=== PATIENT | female | born 1930 | race Caucasian/White ===

== ENCOUNTER 2017-01-22 17:37 | Inpatient (IN) | payer MEDICARE, BC ==
[~2017-01-22] VITALS: Ht 165.1 cm; Wt 77.1 kg
[2017-01-22] MEDS ORDERED: IV NORMAL SALINE 1000 ML BAG IV ONE ×2 (18:00→20:00)
[2017-01-22] MEDS ORDERED: ONDANSETRON 4 MG/2 ML VIAL IV ONE (18:00)
[2017-01-22] MEDS ORDERED: ONDANSETRON 4 MG/2 ML VIAL ONE (18:14)
[2017-01-22] MEDS ORDERED: LISI-607 PO (18:49)
[2017-01-22] MEDS ORDERED: CAL1TABL PO (18:49)
[2017-01-22] MEDS ORDERED: MULT-15 PO (18:49)
[2017-01-22] MEDS ORDERED: POTA20TA10 PO (18:49)
[2017-01-22] MEDS ORDERED: CHOL100045 PO (18:49)
[2017-01-22] MEDS ORDERED: CLOP75TA15 PO (18:49)
[2017-01-22] MEDS ORDERED: QUET25TA PO (18:49)
[2017-01-22] MEDS ORDERED: DONE5TAB34 PO (18:49)
[2017-01-22] MEDS ORDERED: ACET-2154 PO (18:49)
[2017-01-22] MEDS ORDERED: LEVE500T20 PO (18:49)
[2017-01-22] MEDS ORDERED: ONDA4TAB11 PO (18:49)
[2017-01-22] MEDS ORDERED: POLY17PO4 PO (18:49)
[2017-01-22] MEDS ORDERED: TRIA1CAP6 PO (18:49)
[2017-01-22] MEDS ORDERED: OM3/1CAP3 PO (18:49)
[2017-01-22] MEDS ORDERED: LATA2.5D7 EACHEYE (18:49)
[2017-01-22] MEDS ORDERED: BRIM5DRO EACHEYE (18:49)
[2017-01-22] MEDS ORDERED: ATEN25TA PO (18:49)
[2017-01-22] MEDS ORDERED: MELO-107 PO (18:49)
[2017-01-22] MEDS ORDERED: POTA-10 PO (18:49)
[2017-01-22] MEDS ORDERED: CALC300T4 PO (18:49)
[2017-01-22] MEDS ORDERED: FLEC100T2 PO (18:49)
[2017-01-22] MEDS ORDERED: AMLO5TAB2 PO (18:49)
[2017-01-22] MEDS ORDERED: TRAM50TA2 PO (18:49)
[2017-01-22] MEDS ORDERED: BIMA2.5D5 EACHEYE (18:49)
[2017-01-22 18:57] LABS: BASOPHILS # (AUTO) 0.1 K/uL (0.0-8.0); BASOPHILS % (AUTO) 0.4 % (0.0-2.0); EOSINOPHILS # (AUTO) 0.2 K/uL (0.0-0.7); EOSINOPHILS % (AUTO) 1.2 % (0.0-7.0); HEMATOCRIT 51.7 % (37-47); HEMOGLOBIN 16.9 G/DL (12.0-16.0); LYMPHOCYTES # (AUTO) 1.5 K/UL (0.8-4.8); LYMPHOCYTES % (AUTO) 11.5 % (20.5-51.5); MEAN CORPUSCULAR HGB CONC 33 g/dL (32.0-37.0); MEAN CORPUSCULAR VOLUME 94.6 FL (81.0-99.0); MONOCYTES # (AUTO) 0.9 K/UL (0.1-1.30); MONOCYTES % (AUTO) 7.1 % (0.0-11.0); NEUTROPHILS # (AUTO) 10.1 K/UL (1.8-8.9); NEUTROPHILS % (AUTO) 79.8 % (38.5-71.5); PLATELET COUNT (AUTO) 266 K/UL (150-450); RED BLOOD CELL COUNT(AUTO) 5.46 MIL/UL (4.2-5.4); WHITE BLOOD COUNT (AUTO) 12.8 K/UL (4.0-11.2)
[2017-01-22 18:58] LABS: CARBON DIOXIDE 30 mmol/L (21-32); CHLORIDE 102 mmol/L (98-107); CREATININE 1.5 mg/dL (0.6-1.3); GLUCOSE 127 mg/dL (74-106); POTASSIUM 3.7 mmol/L (3.5-5.1); UREA NITROGEN, BLOOD 38 mg/dL (7-18)
[2017-01-22 19:02] LABS: ALANINE AMINOTRANSFERASE 22 U/L (14-59); ALKALINE PHOSPHATASE 100 U/L (50-136); ASPARTATE AMINOTRANSFERASE 20 U/L (15-37); BILIRUBIN,DIRECT 0.2 mg/dL (0.0-0.2); BILIRUBIN,TOTAL 0.6 mg/dL (0.2-1.0); TOTAL PROTEIN, SERUM 6.9 g/dL (6.4-8.2)
[2017-01-22 19:04] LABS: ACETAMINOPHEN < 2.0 ug/mL (10-30)
[2017-01-22 19:24] LABS: THYROID STIMULATING HORMONE 4.206 mIU/mL (0.358-3.740)
[2017-01-22 19:33] LABS: *BILIRUBIN,URIN NEGATIVE (NEGATIVE); *BLOOD, URINE NEGATIVE (NEGATIVE); *COLOR,URINE YELLOW (YELLOW); *KETONES,URINE NEGATIVE (NEGATIVE); *PROTEIN,URINE TRACE (NEGATIVE); *UROBILINOGEN,URINE 0.2 E.U./dl (NORMAL); LEUKOCYTE ESTERASE ,URINE NEGATIVE (NEGATIVE); NITRITE, URINE NEGATIVE (NEGATIVE); UGLUCOSE NEGATIVE (NEGATIVE)
[2017-01-22] MEDS ORDERED: PIPERACILLIN SODIUM/TAZOBACTAM 3.375 G in IV DEXTROSE 5% 50 ML IV ONE (20:00)
[2017-01-22 20:05] LABS: *CLARITY,URINE HAZY (CLEAR)
[2017-01-22 20:06] LABS: BACTERIA,URINE MODERATE /HPF (NONE SEEN)
[2017-01-22 20:07] LABS: MUCUS,URINE MODERATE /LPF (0-FEW); SQUAMOUS EPITHELIAL CELL,UR MODERATE /HPF (NONE SEEN)
[2017-01-22] MEDS ORDERED: PIPERACILLIN/TAZOBACTAM/D5W 50 ML IV ONE (20:28)
[2017-01-22] MEDS ORDERED: LEVOFLOXACIN 500 MG/D5W 100ML PIGGYBACK IV ONE (21:15)
[2017-01-22] MEDS ORDERED: LEVOFLOXACIN 500 MG/D5W 100 ML ONE (21:24)
[2017-01-22 22:05] VITALS: BP 131/80
[2017-01-22] MEDS ORDERED: ACETAMINOPHEN 650 MG SUPP.RECT RC PRN (22:30)
[2017-01-22] MEDS ORDERED: ONDANSETRON 4 MG/2 ML VIAL IV PRN (22:30)
[2017-01-22] MEDS ORDERED: HYDROMORPHONE 1 MG/1 ML DISP.SYRIN IV PRN (22:30)
[2017-01-22] MEDS: PIPERACILLIN/TAZOBACTAM/D5W 2.25 G in PREMIXED 1 EACH IV SCH (22:30)
[2017-01-22] MEDS ORDERED: ENALAPRILAT DIHYDRATE INJ 2.5 MG in IV NORMAL SALINE 50 ML IV PRN (22:30)
[2017-01-22] MEDS: POTASSIUM CHLORIDE 20 MEQ in IV D5 1/2 NS 1000 ML 1,000 ML IV PRN (23:42)
[2017-01-22] MEDS ORDERED: PIPERACILLIN/TAZO 2.25 GM VIAL ONE (23:46)
[2017-01-23] VITALS: BP 126/68
[2017-01-23] MEDS: PIPERACILLIN/TAZOBACTAM/D5W 2.25 G in PREMIXED 1 EACH IV SCH ×4 (03:58→23:03)
[2017-01-23 04:00] VITALS: BP 146/71
[2017-01-23] MEDS ORDERED: HYDROMORPHONE 2 MG/1 ML DISP.SYRIN IV PRN (07:45)
[2017-01-23 07:58] LABS: ALANINE AMINOTRANSFERASE 21 U/L (14-59); ALKALINE PHOSPHATASE 79 U/L (50-136); ASPARTATE AMINOTRANSFERASE 19 U/L (15-37); BILIRUBIN,TOTAL 0.7 mg/dL (0.2-1.0); CARBON DIOXIDE 31 mmol/L (21-32); CHLORIDE 107 mmol/L (98-107); CHOLESTEROL 107 mg/dL (<200); CREATININE 1.2 mg/dL (0.6-1.3); GLUCOSE 102 mg/dL (74-106); HDL CHOLESTEROL 43 mg/dL (40-60); MAGNESIUM 1.7 mg/dL (1.8-2.4); PHOSPHOROUS 3.9 mg/dL (2.5-4.9); POTASSIUM 3.7 mmol/L (3.5-5.1); TOTAL PROTEIN, SERUM 5.6 g/dL (6.4-8.2); TRIGLYCERIDES 57 MG/DL (30-150); UREA NITROGEN, BLOOD 34 mg/dL (7-18)
[2017-01-23] MEDS: BRIMONIDINE 0.2% OPHT DROP 10 ML BOTTLE EACHEYE SCH ×3 (08:30→17:05)
[2017-01-23] MEDS: FAMOTIDINE. 20 MG/2 ML VIAL IV SCH ×2 (08:30→21:19)
[2017-01-23] MEDS ORDERED: BRIMONIDINE-P 0.15% OPHT DROP 5 ML BOTTLE EACHEYE SCH (09:00)
[2017-01-23] MEDS ORDERED: LEVETIRACETAM IV 500 MG in IV DEXTROSE 5% 100 ML IV SCH (09:00)
[2017-01-23] MEDS ORDERED: FAMOTIDINE. 20 MG/2 ML VIAL IV SCH (09:00)
[2017-01-23] MEDS: LEVETIRACETAM IV 500 MG in IV DEXTROSE 5% 100 ML IV SCH ×2 (10:01→21:18)
[2017-01-23 11:16] VITALS: BP 124/73
[2017-01-23 12:49] LABS: BASOPHILS # (AUTO) 0.1 K/uL (0.0-8.0); BASOPHILS % (AUTO) 0.6 % (0.0-2.0); EOSINOPHILS # (AUTO) 0.3 K/uL (0.0-0.7); EOSINOPHILS % (AUTO) 3.7 % (0.0-7.0); HEMATOCRIT 45.3 % (37-47); HEMOGLOBIN 14.8 G/DL (12.0-16.0); LYMPHOCYTES # (AUTO) 1.6 K/UL (0.8-4.8); LYMPHOCYTES % (AUTO) 18.3 % (20.5-51.5); MEAN CORPUSCULAR HGB CONC 33 g/dL (32.0-37.0); MEAN CORPUSCULAR VOLUME 94.8 FL (81.0-99.0); MONOCYTES # (AUTO) 0.8 K/UL (0.1-1.30); NEUTROPHILS # (AUTO) 5.9 K/UL (1.8-8.9); NEUTROPHILS % (AUTO) 68.4 % (38.5-71.5); PLATELET COUNT (AUTO) 220 K/UL (150-450); RED BLOOD CELL COUNT(AUTO) 4.78 MIL/UL (4.2-5.4); WHITE BLOOD COUNT (AUTO) 8.7 K/UL (4.0-11.2)
[2017-01-23 15:05] VITALS: BP 138/81
[2017-01-23] MEDS: POTASSIUM CHLORIDE 20 MEQ in IV D5 1/2 NS 1000 ML 1,000 ML IV PRN (17:05)
[2017-01-23] MEDS: LATANOPROST OPHT DROP 2.5 ML BOTTLE EACHEYE SCH (17:10)
[2017-01-23] MEDS: MAGNESIUM SULFATE/D5W 100 ML IV SCH ×2 (17:37→18:52)
[2017-01-23] MEDS ORDERED: BIMATOPROST 0.01% OPHT DROP 2.5 ML BOTTLE EACHEYE SCH (18:00)
[2017-01-23 20:00] VITALS: BP 104/54
[2017-01-24 04:54] VITALS: BP 145/67
[2017-01-24] MEDS: PIPERACILLIN/TAZOBACTAM/D5W 2.25 G in PREMIXED 1 EACH IV SCH ×5 (05:00→23:09)
[2017-01-24 06:32] LABS: CARBON DIOXIDE 31 mmol/L (21-32); CHLORIDE 104 mmol/L (98-107); CREATININE 1.1 mg/dL (0.6-1.3); GLUCOSE 98 mg/dL (74-106); MAGNESIUM 1.9 mg/dL (1.8-2.4); PHOSPHOROUS 2.7 mg/dL (2.5-4.9); POTASSIUM 3.3 mmol/L (3.5-5.1); UREA NITROGEN, BLOOD 17 mg/dL (7-18)
[2017-01-24 06:52] LABS: BASOPHILS # (AUTO) 0.1 K/uL (0.0-8.0); BASOPHILS % (AUTO) 0.6 % (0.0-2.0); EOSINOPHILS # (AUTO) 0.5 K/uL (0.0-0.7); EOSINOPHILS % (AUTO) 3.8 % (0.0-7.0); HEMATOCRIT 46.3 % (37-47); HEMOGLOBIN 15.1 G/DL (12.0-16.0); LYMPHOCYTES # (AUTO) 1.5 K/UL (0.8-4.8); LYMPHOCYTES % (AUTO) 12.8 % (20.5-51.5); MEAN CORPUSCULAR HEMOGLOBIN 31.2 UUG (27.0-31.0); MEAN CORPUSCULAR HGB CONC 33 g/dL (32.0-37.0); MEAN CORPUSCULAR VOLUME 95.9 FL (81.0-99.0); MONOCYTES # (AUTO) 0.7 K/UL (0.1-1.30); MONOCYTES % (AUTO) 6.1 % (0.0-11.0); NEUTROPHILS # (AUTO) 9.1 K/UL (1.8-8.9); NEUTROPHILS % (AUTO) 76.7 % (38.5-71.5); PLATELET COUNT (AUTO) 213 K/UL (150-450); RED BLOOD CELL COUNT(AUTO) 4.82 MIL/UL (4.2-5.4); WHITE BLOOD COUNT (AUTO) 11.9 K/UL (4.0-11.2)
[2017-01-24] MEDS: FAMOTIDINE. 20 MG/2 ML VIAL IV SCH (08:01)
[2017-01-24] MEDS: BRIMONIDINE 0.2% OPHT DROP 10 ML BOTTLE EACHEYE SCH ×3 (08:02→16:15)
[2017-01-24] MEDS: LEVETIRACETAM IV 500 MG in IV DEXTROSE 5% 100 ML IV SCH (08:38)
[2017-01-24 11:37] VITALS: BP 130/76
[2017-01-24 15:26] VITALS: BP 124/84
[2017-01-24 15:40] LABS: *BILIRUBIN,URIN NEGATIVE (NEGATIVE); *BLOOD, URINE Trace-intact (NEGATIVE); *CLARITY,URINE SLIGHTLY CLOUDY (CLEAR); *COLOR,URINE YELLOW (YELLOW); *KETONES,URINE NEGATIVE (NEGATIVE); *PROTEIN,URINE NEGATIVE (NEGATIVE); *UROBILINOGEN,URINE 0.2 E.U./dl (NORMAL); LEUKOCYTE ESTERASE ,URINE TRACE (NEGATIVE); NITRITE, URINE NEGATIVE (NEGATIVE); UGLUCOSE TRACE (NEGATIVE)
[2017-01-24 16:05] LABS: BACTERIA,URINE FEW /HPF (NONE SEEN); SQUAMOUS EPITHELIAL CELL,UR MANY /HPF (NONE SEEN)
[2017-01-24] MEDS: LATANOPROST OPHT DROP 2.5 ML BOTTLE EACHEYE SCH (17:17)
[2017-01-24 20:00] VITALS: BP 156/84
[2017-01-24] MEDS: LEVETIRACETAM 500 MG TABLET PO SCH (20:54)
[2017-01-24] MEDS: FAMOTIDINE 20 MG TABLET PO SCH (20:55)
[2017-01-25 04:00] VITALS: BP 186/108
[2017-01-25] MEDS ORDERED: VANCOMYCIN IV 1 G in PREMIXED 0 EACH IV ONE (04:30)
[2017-01-25] MEDS: PIPERACILLIN/TAZOBACTAM/D5W 2.25 G in PREMIXED 1 EACH IV SCH ×2 (05:02→11:24)
[2017-01-25] MEDS ORDERED: VANCOMYCIN 1000 MG VIAL ONE (05:10)
[2017-01-25] MEDS ORDERED: ENALAPRILAT DIHYDRATE 1.25 MG/1 ML VIAL IV ONE (05:11)
[2017-01-25 06:26] VITALS: BP 174/98
[2017-01-25 06:47] VITALS: BP 162/97
[2017-01-25] MEDS: FAMOTIDINE 20 MG TABLET PO SCH ×3 (08:51→20:00)
[2017-01-25] MEDS: LEVETIRACETAM 500 MG TABLET PO SCH ×3 (08:51→20:00)
[2017-01-25] MEDS: BRIMONIDINE 0.2% OPHT DROP 10 ML BOTTLE EACHEYE SCH ×4 (08:52→17:00)
[2017-01-25 09:00] VITALS: BP 146/94
[2017-01-25] MEDS: CLOPIDOGREL 75 MG TABLET PO SCH (09:00)
[2017-01-25] MEDS: ATENOLOL 25 MG TABLET PO SCH (09:00)
[2017-01-25] MEDS: LISINOPRIL 5 MG TABLET PO SCH ×2 (09:00→20:00)
[2017-01-25] MEDS: AMLODIPINE 5 MG TABLET PO SCH (09:00)
[2017-01-25 11:06] VITALS: BP 144/97
[2017-01-25 15:23] VITALS: BP 138/80
[2017-01-25] MEDS ORDERED: LINEZOLID 600 MG TABLET PO SCH (16:30)
[2017-01-25] MEDS ORDERED: LINEZOLID IV 600 MG in PREMIXED 1 EACH IV SCH ×2 (16:30→18:00)
[2017-01-25] MEDS ORDERED: LINE600T PO (16:36)
[2017-01-25] MEDS ORDERED: FAMO-132 PO (16:36)
[2017-01-25] MEDS: LATANOPROST OPHT DROP 2.5 ML BOTTLE EACHEYE SCH (17:15)
[2017-01-26] MEDS: LINEZOLID IV 600 MG in PREMIXED 1 EACH IV SCH ×2 (05:01→17:14)
[2017-01-26 06:23] VITALS: BP 143/89
[2017-01-26] MEDS: LISINOPRIL 5 MG TABLET PO SCH ×2 (08:27→20:08)
[2017-01-26] MEDS: FAMOTIDINE 20 MG TABLET PO SCH ×2 (08:27→20:08)
[2017-01-26] MEDS: LEVETIRACETAM 500 MG TABLET PO SCH ×2 (08:28→20:08)
[2017-01-26] MEDS: ATENOLOL 25 MG TABLET PO SCH (08:28)
[2017-01-26] MEDS: AMLODIPINE 5 MG TABLET PO SCH (08:28)
[2017-01-26] MEDS: BRIMONIDINE 0.2% OPHT DROP 10 ML BOTTLE EACHEYE SCH ×3 (08:28→17:00)
[2017-01-26] MEDS: CLOPIDOGREL 75 MG TABLET PO SCH (08:28)
[2017-01-26 08:39] VITALS: BP 147/89
[2017-01-26 11:25] VITALS: BP 126/77
[2017-01-26 15:29] VITALS: BP 137/84
[2017-01-26] MEDS: LATANOPROST OPHT DROP 2.5 ML BOTTLE EACHEYE SCH (17:10)
[2017-01-26 20:14] VITALS: BP 133/77
[2017-01-27] MEDS: LINEZOLID IV 600 MG in PREMIXED 1 EACH IV SCH (05:03)
[2017-01-27 05:51] VITALS: BP 136/98
[2017-01-27 06:09] LABS: BASOPHILS # (AUTO) 0.1 K/uL (0.0-8.0); BASOPHILS % (AUTO) 0.3 % (0.0-2.0); EOSINOPHILS # (AUTO) 0.2 K/uL (0.0-0.7); HEMATOCRIT 47.7 % (31.2-41.9); HEMOGLOBIN 16.2 g/dL (10.9-14.3); LYMPHOCYTES # (AUTO) 0.9 K/uL (20.0-40.0); LYMPHOCYTES % (AUTO) 5.8 % (20.5-51.5); MEAN CORPUSCULAR HEMOGLOBIN 31.7 uug (24.7-32.8); MEAN CORPUSCULAR HGB CONC 34 g/dL (32.3-35.6); MEAN CORPUSCULAR VOLUME 93.3 fL (75.5-95.3); MONOCYTES # (AUTO) 1.2 K/uL (2.0-10.0); MONOCYTES % (AUTO) 7.2 % (0.0-11.0); NEUTROPHILS # (AUTO) 13.9 K/uL (1.8-8.9); NEUTROPHILS % (AUTO) 85.7 % (38.5-71.5); PLATELET COUNT (AUTO) 202 K/uL (179-408); RED BLOOD CELL COUNT(AUTO) 5.11 MIL/uL (3.63-4.92); WHITE BLOOD COUNT (AUTO) 16.3 K/uL (3.8-11.8)
[2017-01-27 06:27] LABS: ALANINE AMINOTRANSFERASE 16 U/L (14-59); ALKALINE PHOSPHATASE 87 U/L (50-136); ASPARTATE AMINOTRANSFERASE 19 U/L (15-37); BILIRUBIN,TOTAL 0.7 mg/dL (0.2-1.0); CARBON DIOXIDE 30 mmol/L (21-32); CHLORIDE 101 mmol/L (98-107); GLUCOSE 161 mg/dL (74-106); MAGNESIUM 1.6 mg/dL (1.8-2.4); PHOSPHOROUS 2.4 mg/dL (2.5-4.9); UREA NITROGEN, BLOOD 12 mg/dL (7-18)
[2017-01-27 07:27] LABS: POTASSIUM 2.8 mmol/L (3.5-5.1)
[2017-01-27] MEDS: AMLODIPINE 5 MG TABLET PO SCH (09:06)
[2017-01-27] MEDS: FAMOTIDINE 20 MG TABLET PO SCH (09:06)
[2017-01-27] MEDS: CLOPIDOGREL 75 MG TABLET PO SCH (09:07)
[2017-01-27] MEDS: ATENOLOL 25 MG TABLET PO SCH (09:07)
[2017-01-27] MEDS: LISINOPRIL 5 MG TABLET PO SCH (09:07)
[2017-01-27] MEDS: BRIMONIDINE 0.2% OPHT DROP 10 ML BOTTLE EACHEYE SCH ×3 (09:08→17:32)
[2017-01-27] MEDS: LEVETIRACETAM 500 MG TABLET PO SCH (09:08)
[2017-01-27 11:39] VITALS: BP 126/74
[2017-01-27] MEDS ORDERED: MAGNESIUM SULFATE/D5W 100 ML IV SCH ×2 (15:00→21:00)
[2017-01-27] MEDS: POTASSIUM PHOSPHATE MM 7.5 MMOL in IV DEXTROSE 5% 100 ML IV SCH ×2 (15:19→17:32)
[2017-01-27 16:45] VITALS: BP 143/68
== END 2017-01-27 18:23 | DRG 871 ==
LOC: ER 17:40 → TELE 21:23 → MED 01-23 16:57 → TELE 01-25 05:24 → MED 01-25 05:58
PROVIDERS: ADMIT Internal Medicine; ATTEND Internal Medicine
DX: A41.81 Sepsis due to Enterococcus (principal); G93.41 Metabolic encephalopathy; J96.01 Acute respiratory failure with hypoxia; N17.0 Acute kidney failure with tubular necrosis; J90 Pleural effusion, not elsewhere classified; E87.2 Acidosis; I48.0 Paroxysmal atrial fibrillation; D68.59 Other primary thrombophilia; E86.0 Dehydration; N39.0 Urinary tract infection, site not specified; I45.2 Bifascicular block; I27.20 Pulmonary hypertension, unspecified; F03.90 Unspecified dementia, unspecified severity, without behavioral disturbance, psychotic disturbance, mood disturbance, and anxiety; E03.9 Hypothyroidism, unspecified; G40.909 Epilepsy, unspecified, not intractable, without status epilepticus; H35.30 Unspecified macular degeneration; Z16.21 Resistance to vancomycin; Z79.01 Long term (current) use of anticoagulants; R65.20 Severe sepsis without septic shock; Z87.891 Personal history of nicotine dependence; Z74.09 Other reduced mobility; Z85.3 Personal history of malignant neoplasm of breast; Z86.73 Personal history of transient ischemic attack (TIA), and cerebral infarction without residual deficits; I11.9 Hypertensive heart disease without heart failure; R29.6 Repeated falls; Z87.440 Personal history of urinary (tract) infections; Z79.899 Other long term (current) drug therapy; Z87.81 Personal history of (healed) traumatic fracture; M19.90 Unspecified osteoarthritis, unspecified site; M54.10 Radiculopathy, site unspecified; E78.5 Hyperlipidemia, unspecified
CPT/HCPCS: 36415; 70030-TC; 70450; 71010; 83605; 83735; 84100; 84443; 85025; 85730; 86850; 86900; 86901; 87040; 87077; 87086; 93005; 97110; 97116; 97530; A4663; C1758; G0480-TC; J1953; J1956; J2020; J2405; J2543; J3370; J3475; J3480; J3490; J7030; J7040; J7050; J7060

== ENCOUNTER 2017-01-27 18:07 | Inpatient (IN) | payer MEDICARE, BC ==
[~2017-01-27 18:07] MED LIST: ACET-2154 PO; AMLO5TAB2 PO; ATEN25TA PO; BIMA2.5D5 EACHEYE; BRIM5DRO EACHEYE; CAL1TABL PO; CALC300T4 PO; CHOL100045 PO; CLOP75TA15 PO; DONE5TAB34 PO; FAMO-132 PO; FLEC100T2 PO; LATA2.5D7 EACHEYE; LEVE500T20 PO; LINE600T PO; LISI-607 PO; MULT-15 PO; OM3/1CAP3 PO; ONDA4TAB11 PO; POLY17PO4 PO; POTA20TA10 PO; QUET25TA PO; TRAM50TA2 PO
[2017-01-27] MEDS ORDERED: Z GUARD REMEDY PASTE 57 GM TUBE TOP PRN (18:45)
[2017-01-27 19:45] VITALS: BP 109/62
[2017-01-27] MEDS ORDERED: MIRALAX 17 GM POWD.PACK PO PRN (22:00)
[2017-01-27] MEDS ORDERED: ACETAMINOPHEN 325 MG TABLET PO PRN (22:00)
[2017-01-28 07:00] VITALS: BP 127/86
[2017-01-28] MEDS: BRIMONIDINE 0.2% OPHT DROP 10 ML BOTTLE EACHEYE SCH ×3 (09:00→17:47)
[2017-01-28] MEDS ORDERED: Medication Not On Formulary EA (Om3/Dha/Epa/Cod Liver Oil/A/D3 (Cod Liver Oil Softgel) 1 PO SCH (09:00)
[2017-01-28] MEDS ORDERED: BRIMONIDINE-P 0.15% OPHT DROP 5 ML BOTTLE EACHEYE SCH (09:00)
[2017-01-28] MEDS: LINEZOLID 600 MG TABLET PO SCH ×2 (09:00→20:27)
[2017-01-28] MEDS ORDERED: FLECAINIDE ACETATE 100 MG TABLET PO SCH (09:00)
[2017-01-28] MEDS ORDERED: POTASSIUM CHLORIDE 20 MEQ TAB.PRT.SR PO SCH (09:00)
[2017-01-28] MEDS: CHOLECALCIFEROL 1,000 UNIT TABLET PO SCH (09:20)
[2017-01-28] MEDS: FAMOTIDINE 20 MG TABLET PO SCH (09:21)
[2017-01-28] MEDS: CLOPIDOGREL 75 MG TABLET PO SCH (09:21)
[2017-01-28] MEDS: MULTIVITAMINS,THERAPEUTIC TABLET PO SCH (09:21)
[2017-01-28] MEDS: LEVETIRACETAM 500 MG TABLET PO SCH ×2 (09:22→20:25)
[2017-01-28] MEDS: CALCIUM CITRA-VITAMIN D 315 MG-250 UNITS TABLET PO SCH ×3 (09:22→17:47)
[2017-01-28] MEDS: LISINOPRIL 5 MG TABLET PO SCH ×2 (09:22→20:27)
[2017-01-28] MEDS: AMLODIPINE 5 MG TABLET PO SCH (09:25)
[2017-01-28] MEDS ORDERED: BIMATOPROST 0.01% OPHT DROP 2.5 ML BOTTLE EACHEYE SCH (18:00)
[2017-01-28] MEDS ORDERED: QUETIAPINE FUMARATE 25 MG TABLET PO SCH (18:00)
[2017-01-28] MEDS: LATANOPROST OPHT DROP 2.5 ML BOTTLE EACHEYE SCH (20:25)
[2017-01-28] MEDS: ATENOLOL 25 MG TABLET PO SCH (20:27)
[2017-01-28] MEDS ORDERED: DONEPEZIL 5 MG TABLET PO SCH (21:00)
[2017-01-29 07:00] VITALS: BP 144/90
[2017-01-29] MEDS: FAMOTIDINE 20 MG TABLET PO SCH (07:56)
[2017-01-29] MEDS: CLOPIDOGREL 75 MG TABLET PO SCH (08:00)
[2017-01-29] MEDS: LEVETIRACETAM 500 MG TABLET PO SCH ×2 (08:00→20:42)
[2017-01-29] MEDS: LISINOPRIL 5 MG TABLET PO SCH ×2 (08:00→20:42)
[2017-01-29] MEDS: MULTIVITAMINS,THERAPEUTIC TABLET PO SCH (08:00)
[2017-01-29] MEDS: CHOLECALCIFEROL 1,000 UNIT TABLET PO SCH (08:00)
[2017-01-29] MEDS: CALCIUM CITRA-VITAMIN D 315 MG-250 UNITS TABLET PO SCH ×3 (08:00→17:04)
[2017-01-29] MEDS: LINEZOLID 600 MG TABLET PO SCH ×2 (08:01→20:43)
[2017-01-29] MEDS: AMLODIPINE 5 MG TABLET PO SCH (08:01)
[2017-01-29] MEDS: BRIMONIDINE 0.2% OPHT DROP 10 ML BOTTLE EACHEYE SCH ×3 (08:01→17:04)
[2017-01-29] MEDS: OMEGA-3 FATTY ACIDS/FISH OIL CAPSULE PO SCH (08:01)
[2017-01-29] MEDS ORDERED: POTASSIUM CHLORIDE 20 MEQ TAB.PRT.SR PO SCH (09:00)
[2017-01-29] MEDS: LATANOPROST OPHT DROP 2.5 ML BOTTLE EACHEYE SCH (20:41)
[2017-01-29] MEDS: ATENOLOL 25 MG TABLET PO SCH (20:42)
[2017-01-29 20:53] VITALS: BP 135/83
[2017-01-30 08:12] VITALS: BP 142/87
[2017-01-30] MEDS: CHOLECALCIFEROL 1,000 UNIT TABLET PO SCH (08:21)
[2017-01-30] MEDS: CLOPIDOGREL 75 MG TABLET PO SCH (08:21)
[2017-01-30] MEDS: LISINOPRIL 5 MG TABLET PO SCH ×2 (08:21→20:29)
[2017-01-30] MEDS: LINEZOLID 600 MG TABLET PO SCH ×2 (08:21→20:29)
[2017-01-30] MEDS: OMEGA-3 FATTY ACIDS/FISH OIL CAPSULE PO SCH (08:21)
[2017-01-30] MEDS: FAMOTIDINE 20 MG TABLET PO SCH (08:21)
[2017-01-30] MEDS: LEVETIRACETAM 500 MG TABLET PO SCH ×2 (08:21→20:28)
[2017-01-30] MEDS: AMLODIPINE 5 MG TABLET PO SCH (08:22)
[2017-01-30] MEDS: MULTIVITAMINS,THERAPEUTIC TABLET PO SCH (08:22)
[2017-01-30] MEDS: CALCIUM CITRA-VITAMIN D 315 MG-250 UNITS TABLET PO SCH ×3 (08:22→17:20)
[2017-01-30 08:25] LABS: BASOPHILS % (AUTO) 0.2 % (0.0-2.0); EOSINOPHILS % (AUTO) 0.1 % (0.0-7.0); HEMATOCRIT 46.7 % (31.2-41.9); HEMOGLOBIN 15.7 g/dL (10.9-14.3); LYMPHOCYTES % (AUTO) 5.8 % (20.5-51.5); MEAN CORPUSCULAR HEMOGLOBIN 31.6 uug (24.7-32.8); MEAN CORPUSCULAR HGB CONC 34 g/dL (32.3-35.6); MONOCYTES # (AUTO) 1.8 K/uL (2.0-10.0); NEUTROPHILS # (AUTO) 15.1 K/uL (1.8-8.9); NEUTROPHILS % (AUTO) 83.9 % (38.5-71.5); PLATELET COUNT (AUTO) 233 K/uL (179-408); RED BLOOD CELL COUNT(AUTO) 4.97 MIL/uL (3.63-4.92)
[2017-01-30 08:36] LABS: ALANINE AMINOTRANSFERASE 22 U/L (14-59); ALKALINE PHOSPHATASE 83 U/L (50-136); ASPARTATE AMINOTRANSFERASE 34 U/L (15-37); CARBON DIOXIDE 31 mmol/L (21-32); CHLORIDE 105 mmol/L (98-107); CREATININE 0.9 mg/dL (0.6-1.3); GLUCOSE 113 mg/dL (74-106); POTASSIUM 3.2 mmol/L (3.5-5.1); TOTAL PROTEIN, SERUM 6.6 g/dL (6.4-8.2); UREA NITROGEN, BLOOD 30 mg/dL (7-18)
[2017-01-30] MEDS: BRIMONIDINE 0.2% OPHT DROP 10 ML BOTTLE EACHEYE SCH ×3 (09:00→17:00)
[2017-01-30 09:32] LABS: BASOPHILS % (MANUAL) 1 % (0-2); LYMPHOCYTES % (MANUAL) 7 % (20-40); MONOCYTES % (MANUAL) 4 % (2-10); NEUTROPHILS % (MANUAL) 88 % (42-75)
[2017-01-30] MEDS ORDERED: POTASSIUM CHLORIDE 20 MEQ TAB.PRT.SR PO ONE (14:45)
[2017-01-30] MEDS: LATANOPROST OPHT DROP 2.5 ML BOTTLE EACHEYE SCH (20:28)
[2017-01-30] MEDS: ATENOLOL 25 MG TABLET PO SCH (20:28)
[2017-01-30 20:35] VITALS: BP 148/92
[2017-01-31 08:00] VITALS: BP 141/104
[2017-01-31] MEDS: FAMOTIDINE 20 MG TABLET PO SCH (08:57)
[2017-01-31] MEDS: OMEGA-3 FATTY ACIDS/FISH OIL CAPSULE PO SCH (08:57)
[2017-01-31] MEDS: CLOPIDOGREL 75 MG TABLET PO SCH (08:57)
[2017-01-31] MEDS: CHOLECALCIFEROL 1,000 UNIT TABLET PO SCH (08:57)
[2017-01-31] MEDS: AMLODIPINE 5 MG TABLET PO SCH (08:57)
[2017-01-31] MEDS: CALCIUM CITRA-VITAMIN D 315 MG-250 UNITS TABLET PO SCH ×3 (08:58→17:07)
[2017-01-31] MEDS: BRIMONIDINE 0.2% OPHT DROP 10 ML BOTTLE EACHEYE SCH ×3 (08:58→17:07)
[2017-01-31] MEDS: LISINOPRIL 5 MG TABLET PO SCH ×2 (08:58→21:47)
[2017-01-31] MEDS: MULTIVITAMINS,THERAPEUTIC TABLET PO SCH (08:58)
[2017-01-31] MEDS: LEVETIRACETAM 500 MG TABLET PO SCH ×2 (08:58→21:47)
[2017-01-31] MEDS: LINEZOLID 600 MG TABLET PO SCH ×2 (08:59→21:47)
[2017-01-31 19:45] VITALS: BP 161/95
[2017-01-31] MEDS: ATENOLOL 25 MG TABLET PO SCH (21:46)
[2017-01-31] MEDS: LATANOPROST OPHT DROP 2.5 ML BOTTLE EACHEYE SCH (21:47)
[2017-02-01 07:30] LABS: CARBON DIOXIDE 30 mmol/L (21-32); CHLORIDE 106 mmol/L (98-107); CREATININE 0.8 mg/dL (0.6-1.3); GLUCOSE 109 mg/dL (74-106); PHOSPHOROUS 3.4 mg/dL (2.5-4.9); POTASSIUM 3.5 mmol/L (3.5-5.1); UREA NITROGEN, BLOOD 33 mg/dL (7-18)
[2017-02-01 07:36] LABS: BASOPHILS # (AUTO) 0.1 K/uL (0.0-8.0); EOSINOPHILS # (AUTO) 0.1 K/uL (0.0-0.7); MONOCYTES # (AUTO) 0.8 K/uL (2.0-10.0); MONOCYTES % (AUTO) 6.3 % (0.0-11.0)
[2017-02-01 07:47] LABS: BASOPHILS % (AUTO) 0.6 % (0.0-2.0); HEMATOCRIT 48.2 % (31.2-41.9); HEMOGLOBIN 16.3 g/dL (10.9-14.3); LYMPHOCYTES % (AUTO) 7.7 % (20.5-51.5); MEAN CORPUSCULAR HEMOGLOBIN 31.9 uug (24.7-32.8); MEAN CORPUSCULAR HGB CONC 34 g/dL (32.3-35.6); MEAN CORPUSCULAR VOLUME 94.6 fL (75.5-95.3); NEUTROPHILS # (AUTO) 10.8 K/uL (1.8-8.9); NEUTROPHILS % (AUTO) 84.4 % (38.5-71.5); PLATELET COUNT (AUTO) 261 K/uL (179-408)
[2017-02-01 07:48] LABS: WHITE BLOOD COUNT (AUTO) 12.8 K/uL (3.8-11.8)
[2017-02-01 08:00] VITALS: BP 167/103
[2017-02-01] MEDS: BRIMONIDINE 0.2% OPHT DROP 10 ML BOTTLE EACHEYE SCH ×3 (09:08→18:15)
[2017-02-01] MEDS: CLOPIDOGREL 75 MG TABLET PO SCH (09:08)
[2017-02-01] MEDS: LEVETIRACETAM 500 MG TABLET PO SCH ×2 (09:08→20:33)
[2017-02-01] MEDS: MULTIVITAMINS,THERAPEUTIC TABLET PO SCH (09:08)
[2017-02-01] MEDS: OMEGA-3 FATTY ACIDS/FISH OIL CAPSULE PO SCH (09:08)
[2017-02-01] MEDS: AMLODIPINE 5 MG TABLET PO SCH (09:09)
[2017-02-01] MEDS: CHOLECALCIFEROL 1,000 UNIT TABLET PO SCH (09:09)
[2017-02-01] MEDS: FAMOTIDINE 20 MG TABLET PO SCH (09:09)
[2017-02-01] MEDS: LINEZOLID 600 MG TABLET PO SCH ×2 (09:09→20:36)
[2017-02-01] MEDS: LISINOPRIL 5 MG TABLET PO SCH ×2 (09:10→20:33)
[2017-02-01] MEDS: CALCIUM CITRA-VITAMIN D 315 MG-250 UNITS TABLET PO SCH ×3 (09:10→18:14)
[2017-02-01 19:45] VITALS: BP 123/80
[2017-02-01] MEDS: LATANOPROST OPHT DROP 2.5 ML BOTTLE EACHEYE SCH (20:34)
[2017-02-01] MEDS: ATENOLOL 25 MG TABLET PO SCH (20:34)
[2017-02-02 08:00] VITALS: BP 140/103
[2017-02-02] MEDS: BRIMONIDINE 0.2% OPHT DROP 10 ML BOTTLE EACHEYE SCH ×3 (09:35→17:15)
[2017-02-02] MEDS: LISINOPRIL 5 MG TABLET PO SCH ×2 (09:37→20:25)
[2017-02-02] MEDS: ATENOLOL 25 MG TABLET PO SCH (09:37)
[2017-02-02] MEDS: AMLODIPINE 5 MG TABLET PO SCH (09:38)
[2017-02-02] MEDS: CLOPIDOGREL 75 MG TABLET PO SCH (09:38)
[2017-02-02] MEDS: FAMOTIDINE 20 MG TABLET PO SCH (09:39)
[2017-02-02] MEDS: MULTIVITAMINS,THERAPEUTIC TABLET PO SCH (09:39)
[2017-02-02] MEDS: CHOLECALCIFEROL 1,000 UNIT TABLET PO SCH (09:39)
[2017-02-02] MEDS: CALCIUM CITRA-VITAMIN D 315 MG-250 UNITS TABLET PO SCH ×3 (09:39→17:15)
[2017-02-02] MEDS: OMEGA-3 FATTY ACIDS/FISH OIL CAPSULE PO SCH (09:39)
[2017-02-02] MEDS: LEVETIRACETAM 500 MG TABLET PO SCH ×2 (09:39→20:25)
[2017-02-02] MEDS: LINEZOLID 600 MG TABLET PO SCH (09:39)
[2017-02-02 19:40] VITALS: BP 126/88
[2017-02-02] MEDS: LATANOPROST OPHT DROP 2.5 ML BOTTLE EACHEYE SCH (20:25)
[2017-02-03] MEDS: LEVETIRACETAM 500 MG TABLET PO SCH ×2 (09:13→20:45)
[2017-02-03] MEDS: FAMOTIDINE 20 MG TABLET PO SCH (09:13)
[2017-02-03] MEDS: CALCIUM CITRA-VITAMIN D 315 MG-250 UNITS TABLET PO SCH ×3 (09:13→17:28)
[2017-02-03] MEDS: CLOPIDOGREL 75 MG TABLET PO SCH (09:13)
[2017-02-03] MEDS: OMEGA-3 FATTY ACIDS/FISH OIL CAPSULE PO SCH (09:13)
[2017-02-03] MEDS: LISINOPRIL 5 MG TABLET PO SCH ×2 (09:14→20:45)
[2017-02-03] MEDS: MULTIVITAMINS,THERAPEUTIC TABLET PO SCH (09:14)
[2017-02-03] MEDS: BRIMONIDINE 0.2% OPHT DROP 10 ML BOTTLE EACHEYE SCH ×3 (09:14→17:29)
[2017-02-03] MEDS: CHOLECALCIFEROL 1,000 UNIT TABLET PO SCH (09:14)
[2017-02-03] MEDS: AMLODIPINE 5 MG TABLET PO SCH (09:14)
[2017-02-03] MEDS: LIDOCAINE 5% PATCH TD SCH (09:15)
[2017-02-03 19:30] VITALS: BP 117/83
[2017-02-03] MEDS: ATENOLOL 25 MG TABLET PO SCH (20:45)
[2017-02-03] MEDS: LATANOPROST OPHT DROP 2.5 ML BOTTLE EACHEYE SCH (20:46)
[2017-02-04 08:00] VITALS: BP 127/92
[2017-02-04] MEDS: LIDOCAINE 5% PATCH TD SCH (09:00)
[2017-02-04] MEDS ORDERED: FLUCONAZOLE 100 MG TABLET PO SCH (09:00)
[2017-02-04] MEDS: BRIMONIDINE 0.2% OPHT DROP 10 ML BOTTLE EACHEYE SCH (09:56)
[2017-02-04] MEDS: CLOPIDOGREL 75 MG TABLET PO SCH (09:58)
[2017-02-04] MEDS: LEVETIRACETAM 500 MG TABLET PO SCH (09:58)
[2017-02-04] MEDS: AMLODIPINE 5 MG TABLET PO SCH (09:58)
[2017-02-04] MEDS: MULTIVITAMINS,THERAPEUTIC TABLET PO SCH (09:59)
[2017-02-04] MEDS: CHOLECALCIFEROL 1,000 UNIT TABLET PO SCH (09:59)
[2017-02-04] MEDS: CALCIUM CITRA-VITAMIN D 315 MG-250 UNITS TABLET PO SCH (09:59)
[2017-02-04] MEDS: OMEGA-3 FATTY ACIDS/FISH OIL CAPSULE PO SCH (09:59)
[2017-02-04 10:00] VITALS: BP 127/92
[2017-02-04] MEDS: FAMOTIDINE 20 MG TABLET PO SCH (10:00)
[2017-02-04] MEDS: LISINOPRIL 5 MG TABLET PO SCH (10:00)
== END 2017-02-04 10:20 | DRG 871 ==
PROVIDERS: ADMIT Physical Medicine & Rehabilitation Pain Medicine; ATTEND Physical Medicine & Rehabilitation Pain Medicine
DX: A41.81 Sepsis due to Enterococcus (principal); E43 Unspecified severe protein-calorie malnutrition; N17.0 Acute kidney failure with tubular necrosis; J90 Pleural effusion, not elsewhere classified; D68.59 Other primary thrombophilia; I48.0 Paroxysmal atrial fibrillation; I27.20 Pulmonary hypertension, unspecified; F03.90 Unspecified dementia, unspecified severity, without behavioral disturbance, psychotic disturbance, mood disturbance, and anxiety; I45.2 Bifascicular block; B37.49 Other urogenital candidiasis; M19.90 Unspecified osteoarthritis, unspecified site; G40.909 Epilepsy, unspecified, not intractable, without status epilepticus; E78.5 Hyperlipidemia, unspecified; M54.10 Radiculopathy, site unspecified; E03.9 Hypothyroidism, unspecified; Z87.440 Personal history of urinary (tract) infections; H35.30 Unspecified macular degeneration; I10 Essential (primary) hypertension; Z85.3 Personal history of malignant neoplasm of breast; Z87.891 Personal history of nicotine dependence; Z91.81 History of falling; R29.6 Repeated falls; Z91.013 Allergy to seafood; Z16.21 Resistance to vancomycin
CPT/HCPCS: 36415; 83735; 84100; 85025; 87086; 92526; 92610; 97110; 97112; 97165; 97530; 97535

== ENCOUNTER 2017-02-09 11:39 | Inpatient (IN) | payer MEDICARE, BC ==
[2017-02-09] VITALS (7 sets, daily range): BP systolic 90–126; BP diastolic 60–86
[~2017-02-09] VITALS: Ht 165.1 cm; Wt 72.6 kg
--- NOTE | 2017-02-09 11:45 | NUR ---
Claire-anal care provided. Patient has large amount of dried feces in the diaper area. Skin care provided. Minimal redness to sacral area seen.
--- NOTE | 2017-02-09 11:51 | NUR ---
to CT scan w/ ACLS monitoring & capabilities
[2017-02-09 12:01] LABS: BASOPHILS # (AUTO) 0.1 K/uL (0.0-8.0); BASOPHILS % (AUTO) 0.1 % (0.0-2.0); EOSINOPHILS % (AUTO) 0.1 % (0.0-7.0); HEMATOCRIT 54.7 % (31.2-41.9); HEMOGLOBIN 18.1 g/dL (10.9-14.3); LYMPHOCYTES % (AUTO) 2.6 % (20.5-51.5); MEAN CORPUSCULAR HEMOGLOBIN 31.7 uug (24.7-32.8); MEAN CORPUSCULAR HGB CONC 33 g/dL (32.3-35.6); MEAN CORPUSCULAR VOLUME 95.8 fL (75.5-95.3); MONOCYTES # (AUTO) 2.3 K/uL (2.0-10.0); MONOCYTES % (AUTO) 5.7 % (0.0-11.0); NEUTROPHILS % (AUTO) 91.5 % (38.5-71.5); PLATELET COUNT (AUTO) 431 K/uL (179-408); RED BLOOD CELL COUNT(AUTO) 5.71 MIL/uL (3.63-4.92)
[2017-02-09] MEDS ORDERED: POTA-10 PO (12:02)
[2017-02-09] MEDS ORDERED: MELO-107 PO (12:02)
[2017-02-09] MEDS ORDERED: TRIA1CAP2 PO (12:02)
[2017-02-09 12:06] LABS: WHITE BLOOD COUNT (AUTO) 39.3 K/uL (3.8-11.8)
[2017-02-09 12:14] LABS: CARBON DIOXIDE 26 mmol/L (21-32); CHLORIDE 114 mmol/L (98-107); CREATININE 1.8 mg/dL (0.6-1.3); GLUCOSE 146 mg/dL (74-106); POTASSIUM 5.6 mmol/L (3.5-5.1); UREA NITROGEN, BLOOD 68 mg/dL (7-18)
[2017-02-09 12:19] LABS: BAND % (MANUAL) 5 % (0-10); LYMPHOCYTES % (MANUAL) 5 % (20-40); MONOCYTES % (MANUAL) 6 % (2-10); NEUTROPHILS % (MANUAL) 84 % (42-75)
[2017-02-09 12:20] LABS: ALANINE AMINOTRANSFERASE 47 U/L (14-59); ALKALINE PHOSPHATASE 117 U/L (50-136); ASPARTATE AMINOTRANSFERASE 43 U/L (15-37); BILIRUBIN,DIRECT 0.2 mg/dL (0.0-0.2); BILIRUBIN,TOTAL 0.9 mg/dL (0.2-1.0); TOTAL PROTEIN, SERUM 7.1 g/dL (6.4-8.2)
[2017-02-09 12:29] LABS: *BILIRUBIN,URIN NEGATIVE (NEGATIVE); *BLOOD, URINE NEGATIVE (NEGATIVE); *CLARITY,URINE SLIGHTLY CLOUDY (CLEAR); *COLOR,URINE YELLOW (YELLOW); *KETONES,URINE NEGATIVE (NEGATIVE); *PROTEIN,URINE NEGATIVE (NEGATIVE); *UROBILINOGEN,URINE 0.2 E.U./dl (NORMAL); LEUKOCYTE ESTERASE ,URINE TRACE (NEGATIVE); NITRITE, URINE NEGATIVE (NEGATIVE); UGLUCOSE NEGATIVE (NEGATIVE)
[2017-02-09] MEDS ORDERED: IV NORMAL SALINE 1000 ML BAG IV ONE (12:45)
[2017-02-09] MEDS ORDERED: GENTAMICIN SULFATE INJ 80 MG in IV DEXTROSE 5% 100 ML IV ONE (12:45)
[2017-02-09] MEDS ORDERED: CEFEPIME HCL 1 G in IV DEXTROSE 5% 50 ML IV ONE (12:45)
[2017-02-09] MEDS ORDERED: VANCOMYCIN IV 1,000 MG in IV DEXTROSE 5% 250 ML IV ONE (12:45)
[2017-02-09 12:51] LABS: RBC,URINE 0-3 /HPF (0-3)
[2017-02-09 12:52] LABS: BACTERIA,URINE FEW /HPF (NONE SEEN); SQUAMOUS EPITHELIAL CELL,UR MANY /HPF (NONE SEEN)
[2017-02-09] MEDS ORDERED: VANCOMYCIN IV 200 ML ONE (13:00)
[2017-02-09] MEDS ORDERED: SUCCINYLCHOLINE CHLORIDE 200 MG/10 ML VIAL IV ONE (13:00)
[2017-02-09] MEDS ORDERED: ETOMIDATE 20 MG/10 ML VIAL IV ONE (13:00)
--- NOTE | 2017-02-09 13:42 | NUR ---
Intubation is cancelled by MD for now. Patient is more alert and responsive to pain by verbal response, monitored closely
--- NOTE | 2017-02-09 13:49 | NUR ---
OUT for lunch , endorsed to ELISEO Rodriguez and hot car charger David accordingly
[2017-02-09] MEDS ORDERED: MAGNESIUM HYDROXIDE 30 ML LIQUID UDC PO PRN (14:45)
[2017-02-09] MEDS ORDERED: IV NS 1000 ML 1,000 ML IV ONE ×2 (14:45→16:00)
[2017-02-09] MEDS ORDERED: HYDROCODONE/APAP 5-325MG TABLET PO PRN (14:45)
[2017-02-09] MEDS ORDERED: MIRALAX 17 GM POWD.PACK PO PRN (14:45)
[2017-02-09] MEDS ORDERED: PIPERACILLIN SODIUM/TAZOBACTAM 4.5 G in IV DEXTROSE 5% 50 ML IV SCH (14:45)
[2017-02-09] MEDS ORDERED: ONDANSETRON 4 MG/2 ML VIAL IV PRN (14:45)
[2017-02-09] MEDS ORDERED: Z GUARD REMEDY PASTE 57 GM TUBE TOP PRN (14:45)
[2017-02-09] MEDS ORDERED: ACETAMINOPHEN 325 MG TABLET PO PRN (14:45)
[2017-02-09] MEDS ORDERED: hydrALAZINE HCL 25 MG TABLET PO PRN (15:00)
--- NOTE | 2017-02-09 15:59 | NUR ---
At this time patient brought in via gurney from ER. Vitals stable see vital signs sheet. pt. responsive to painful stimuli, with moments of restlessness and agitation.
[2017-02-09] MEDS ORDERED: SODIUM POLYSTYRENE SULFONATE 15 G/60 ML LIQUID UDC PO ONE (16:00)
[2017-02-09] MEDS ORDERED: LORAZEPAM 2 MG/1 ML VIAL IV PRN (16:00)
[2017-02-09] MEDS: PIPERACILLIN/TAZOBACTAM/D5W 2.25 G in PREMIXED 1 EACH IV SCH ×2 (16:14→21:29)
[2017-02-09] MEDS: IV NS 1000 ML 1,000 ML IV PRN (16:16)
[2017-02-09] MEDS ORDERED: QUET25TA PO (16:17)
[2017-02-09] MEDS ORDERED: LIDO30AD10 TD (16:18)
--- NOTE | 2017-02-09 16:30 | NUR ---
Dr. mancilla in the unit to examine patient brought in from Er as JYOTSNA overflow,.
[2017-02-09] MEDS: BRIMONIDINE 0.2% OPHT DROP 10 ML BOTTLE EACHEYE SCH (16:39)
[2017-02-09] MEDS: FLECAINIDE ACETATE 100 MG TABLET PO SCH (16:39)
[2017-02-09] MEDS ORDERED: CARVEDILOL 3.125 MG TABLET PO ONE (16:58)
[2017-02-09] MEDS ORDERED: BRIMONIDINE-P 0.15% OPHT DROP 5 ML BOTTLE EACHEYE SCH (17:00)
[2017-02-09] MEDS ORDERED: LISINOPRIL 5 MG TABLET PO SCH (17:00)
[2017-02-09] MEDS ORDERED: BIMATOPROST 0.01% OPHT DROP 2.5 ML BOTTLE EACHEYE SCH (18:00)
[2017-02-09] MEDS: CARVEDILOL 3.125 MG TABLET PO SCH (18:00)
[2017-02-09] MEDS: LATANOPROST OPHT DROP 2.5 ML BOTTLE EACHEYE SCH (21:30)
[2017-02-09] MEDS: DONEPEZIL 5 MG TABLET PO SCH (21:30)
[2017-02-09] MEDS: LEVETIRACETAM 500 MG TABLET PO SCH (21:30)
[2017-02-09] MEDS: ENOXAPARIN SODIUM 30 MG/0.3 ML DISP.SYRIN SQ SCH (21:31)
[2017-02-10] VITALS (11 sets, daily range): BP systolic 91–120; BP diastolic 54–73
[2017-02-10] MEDS: IV NS 1000 ML 1,000 ML IV PRN (02:45)
[2017-02-10] MEDS: PIPERACILLIN/TAZOBACTAM/D5W 2.25 G in PREMIXED 1 EACH IV SCH ×4 (03:28→22:12)
[2017-02-10 05:38] LABS: BASOPHILS % (AUTO) 0.1 % (0.0-2.0); EOSINOPHILS % (AUTO) 0.1 % (0.0-7.0); HEMOGLOBIN 16.2 g/dL (10.9-14.3); LYMPHOCYTES # (AUTO) 0.7 K/uL (20.0-40.0); MEAN CORPUSCULAR HEMOGLOBIN 31.7 uug (24.7-32.8); MEAN CORPUSCULAR HGB CONC 32 g/dL (32.3-35.6); MEAN CORPUSCULAR VOLUME 97.8 fL (75.5-95.3); MONOCYTES % (AUTO) 5.8 % (0.0-11.0); NEUTROPHILS # (AUTO) 31.6 K/uL (1.8-8.9); PLATELET COUNT (AUTO) 306 K/uL (179-408); RED BLOOD CELL COUNT(AUTO) 5.11 MIL/uL (3.63-4.92)
[2017-02-10 05:55] LABS: CARBON DIOXIDE 23 mmol/L (21-32); CHLORIDE 119 mmol/L (98-107); CHOLESTEROL 89 mg/dL (<200); CREATININE 1.6 mg/dL (0.6-1.3); GLUCOSE 85 mg/dL (74-106); HDL CHOLESTEROL 31 mg/dL (40-60); MAGNESIUM 2.4 mg/dL (1.8-2.4); POTASSIUM 4.2 mmol/L (3.5-5.1); TRIGLYCERIDES 71 MG/DL (30-150); UREA NITROGEN, BLOOD 55 mg/dL (7-18)
[2017-02-10 06:05] LABS: WHITE BLOOD COUNT (AUTO) 34.4 K/uL (3.8-11.8)
[2017-02-10 07:06] LABS: BAND % (MANUAL) 3 % (0-10); LYMPHOCYTES % (MANUAL) 4 % (20-40); MONOCYTES % (MANUAL) 6 % (2-10); NEUTROPHILS % (MANUAL) 87 % (42-75)
[2017-02-10] MEDS: CLOPIDOGREL 75 MG TABLET PO SCH (08:28)
[2017-02-10] MEDS: FAMOTIDINE 20 MG TABLET PO SCH (08:28)
[2017-02-10] MEDS: LEVETIRACETAM 500 MG TABLET PO SCH ×2 (08:28→21:00)
[2017-02-10] MEDS: CARVEDILOL 3.125 MG TABLET PO SCH ×2 (08:29→17:37)
[2017-02-10] MEDS: FLECAINIDE ACETATE 100 MG TABLET PO SCH ×2 (08:32→16:50)
[2017-02-10] MEDS: BRIMONIDINE 0.2% OPHT DROP 10 ML BOTTLE EACHEYE SCH ×3 (08:35→16:49)
[2017-02-10] MEDS ORDERED: AMLODIPINE 5 MG TABLET PO SCH (09:00)
[2017-02-10] MEDS ORDERED: IV D5W-0.45% NS 1000 ML BAG IV SCH (09:15)
--- NOTE | 2017-02-10 09:31 | NUR ---
Telephone report given to chargeback specialist Hailee patient left room via own bed, [id number]. Vital signs stable no c/of pain. hurtado catheter in place, IV line patent and infusing with Normal saline at 100cc/hr.
--- NOTE | 2017-02-10 09:46 | NUR ---
received transfer from [facility] in stable condition attempted to orient to time and place will require further orientation , bed in low position side rails up times 3 bed alarm on
[2017-02-10] MEDS: IV D5 1/2 NS 1000 ML 1,000 ML IV PRN ×2 (10:00→23:20)
--- NOTE | 2017-02-10 11:15 | NUR ---
dr randle visiting, urine per order sent to lab
[2017-02-10 13:05] LABS: *CREATININE,URINE 62.3 mg/dL (30-125)
[2017-02-10 13:07] LABS: *URINE TOTAL PROTEIN RANDOM 52.4 mg/dL (<150/24HR)
--- NOTE | 2017-02-10 14:00 | NUR ---
SPOKE WITH DAUGHTER NÉSTOR KRAMERDING HER MOTHERS CONDITION
--- NOTE | 2017-02-10 15:00 | NUR ---
DR THOMPSON VISITING
[2017-02-10] MEDS ORDERED: Z GUARD REMEDY PASTE 57 GM TUBE TOP PRN (15:45)
--- NOTE | 2017-02-10 18:27 | NUR ---
STABLE ON Q1HR ROUNDS,FALL PRECAUTIONS MAINTAINED, ASPIRATION PRECAUTIONS MAINTAINED HEAD OF BED ELEVATED, ALL NEEDS MET
--- NOTE | 2017-02-10 20:00 | NUR ---
RECEIVED PATIENT ASLEEP IN BED. EASILY AROUSABLE. A/O X2. DENIES PAIN WHEN ASKED. NO S/S OF PAIN OR DISCOMFORT, NO FACIAL GRIMACE NOTED. NO RESP. DISTRESS NOTED. IVF INFUSING WELL TO RIGHT AC. VSS. ON TELE SR. ON AIR MATTRESS. F/C INTACT AND DRAINING CLEAR, YELLOW URINE. BED ALARM ON. CALL LIGHT IN REACH. ALL NEEDS ATTENDED. WILL CONTINUE TO MONITOR.
[2017-02-10] MEDS: DONEPEZIL 5 MG TABLET PO SCH (21:00)
[2017-02-10] MEDS: Z GUARD REMEDY PASTE 57 GM TUBE TOP SCH (21:01)
[2017-02-10] MEDS: ENOXAPARIN SODIUM 30 MG/0.3 ML DISP.SYRIN SQ SCH (21:01)
[2017-02-10] MEDS: LATANOPROST OPHT DROP 2.5 ML BOTTLE EACHEYE SCH (21:05)
[2017-02-11] VITALS: BP 122/60
[2017-02-11 04:00] VITALS: BP 99/61
[2017-02-11] MEDS: PIPERACILLIN/TAZOBACTAM/D5W 2.25 G in PREMIXED 1 EACH IV SCH ×4 (04:49→21:17)
[2017-02-11 06:22] LABS: BASOPHILS # (AUTO) 0.1 K/uL (0.0-8.0); BASOPHILS % (AUTO) 0.2 % (0.0-2.0); EOSINOPHILS # (AUTO) 0.9 K/uL (0.0-0.7); EOSINOPHILS % (AUTO) 3.3 % (0.0-7.0); HEMATOCRIT 43.6 % (31.2-41.9); LYMPHOCYTES # (AUTO) 0.8 K/uL (20.0-40.0); MEAN CORPUSCULAR HEMOGLOBIN 31.6 uug (24.7-32.8); MEAN CORPUSCULAR HGB CONC 32 g/dL (32.3-35.6); MEAN CORPUSCULAR VOLUME 97.9 fL (75.5-95.3); MONOCYTES # (AUTO) 1.4 K/uL (2.0-10.0); MONOCYTES % (AUTO) 5.4 % (0.0-11.0); NEUTROPHILS # (AUTO) 22.5 K/uL (1.8-8.9); NEUTROPHILS % (AUTO) 88.1 % (38.5-71.5); PLATELET COUNT (AUTO) 263 K/uL (179-408); RED BLOOD CELL COUNT(AUTO) 4.45 MIL/uL (3.63-4.92); WHITE BLOOD COUNT (AUTO) 25.6 K/uL (3.8-11.8)
[2017-02-11 06:34] LABS: CARBON DIOXIDE 26 mmol/L (21-32); CHLORIDE 120 mmol/L (98-107); CREATININE 1.3 mg/dL (0.6-1.3); GLUCOSE 138 mg/dL (74-106); POTASSIUM 2.9 mmol/L (3.5-5.1); UREA NITROGEN, BLOOD 40 mg/dL (7-18)
--- NOTE | 2017-02-11 06:43 | NUR ---
PATIENT ASLEEP IN BED. SLEPT WELL THROUGHOUT THE NIGHT. VSS. IVF INFUSING WELL. ON TELE SR. BED ALARM ON. CALL LIGHT IN REACH. ALL NEEDS ATTENDED. WILL CONTINUE TO MONITOR.
--- NOTE | 2017-02-11 08:00 | NUR ---
Received patient on bed awake, A and O x 2 with bouts of confusion, able to verbalize needs. No acute distress noted. IV of D5 1/2 NS on the right AC #18, intact and patent, running at 75 ml/hr. No s/s of infiltration. Mendez catheter in place, draining well, urine is clear and yellow. No complaints of pain at this time. All comfort measures provided. Repositioned for comfort and to prevent skin breakdown. Will continue to monitor closely.
[2017-02-11] MEDS: FLECAINIDE ACETATE 100 MG TABLET PO SCH ×2 (09:02→17:31)
[2017-02-11] MEDS: CLOPIDOGREL 75 MG TABLET PO SCH (09:02)
[2017-02-11] MEDS: BRIMONIDINE 0.2% OPHT DROP 10 ML BOTTLE EACHEYE SCH ×3 (09:03→17:31)
[2017-02-11] MEDS: LEVETIRACETAM 500 MG TABLET PO SCH ×2 (09:03→21:15)
[2017-02-11] MEDS: Z GUARD REMEDY PASTE 57 GM TUBE TOP SCH ×2 (09:03→21:15)
[2017-02-11] MEDS: FAMOTIDINE 20 MG TABLET PO SCH (09:03)
[2017-02-11] MEDS: CARVEDILOL 3.125 MG TABLET PO SCH ×2 (09:04→17:35)
[2017-02-11 11:54] VITALS: BP 118/69
[2017-02-11] MEDS: POTASSIUM CHLORIDE 20 MEQ in IV D5W 1000ML 1,000 ML IV PRN (13:19)
[2017-02-11] MEDS ORDERED: POTASSIUM CHLORIDE 20 MEQ TAB.PRT.SR PO ONE (13:45)
[2017-02-11 15:40] VITALS: BP 103/67
--- NOTE | 2017-02-11 20:00 | NUR ---
RECEIVED PATIENT AWAKE IN BED. A/O X3. FORGETFUL AT TIMES BUT VERY PLEASANT WHEN APPROACHED. DENIES PAIN OR DISCOMFORT. NO FACIAL GRIMACE NOTED. IVF INFUSING TO RIGHT AC #18 GAUGE. ON AIR MATTRESS. F/C INTACT AND DRAINING WELL. BED ALARM ON. CALL LIGHT IN REACH. ALL NEEDS ATTENDED. WILL CONTINUE TO MONITOR.
[2017-02-11 20:12] VITALS: BP 134/83
[2017-02-11] MEDS: ENOXAPARIN SODIUM 30 MG/0.3 ML DISP.SYRIN SQ SCH (21:15)
[2017-02-11] MEDS: LATANOPROST OPHT DROP 2.5 ML BOTTLE EACHEYE SCH (21:15)
[2017-02-11] MEDS: DONEPEZIL 5 MG TABLET PO SCH (21:15)
--- NOTE | 2017-02-11 21:30 | NUR ---
IV SITE NOTED TO RIGHT AC, LEAKING AND INFILTRATED. REMOVED. WILL RESTART. ALSO CALLED OUT TO DR. PURDY TRAILER SECTIONS ASSEMBLER TO INFORM ABOUT PATIENT WHEEZING. PATIENT A/O IN BED AND DENIES ANY SOB. NO RESP. DISTRESS NOTED. WAITING FOR CALL BACK. ALL NEEDS ATTENDED. WILL CONTINUE TO MONITOR.
[2017-02-11] MEDS: ALBUTEROL SULFATE 2.5 MG/3 ML NEBU NEB PRN (22:32)
--- NOTE | 2017-02-11 22:35 | NUR ---
PATIENT GIVEN BREATHING TX PRN. DENIES ANY FEELINGS OF SOB. NO RESP. DISTRESS NOTED. WILL CONTINUE TO MONITOR AND ASSESS.
--- NOTE | 2017-02-11 23:00 | NUR ---
PATIENT ASLEEP IN BED. NO RESP. DISTRESS NOTED. CONTINUED ON O2 2L NC ORDERED, WHEEZING DIMINISHED. WILL CONTINUE TO MONITOR AND ASSESS.
[2017-02-12] MEDS: POTASSIUM CHLORIDE 20 MEQ in IV D5W 1000ML 1,000 ML IV PRN ×2 (01:51→13:04)
[2017-02-12] MEDS: PIPERACILLIN/TAZOBACTAM/D5W 2.25 G in PREMIXED 1 EACH IV SCH ×4 (04:14→21:25)
[2017-02-12 04:48] VITALS: BP 143/85
--- NOTE | 2017-02-12 05:40 | NUR ---
PATIENT ASLEEP IN BED. SLEPT WELL THROUGHOUT THE NIGHT. VSS. IVF INFUSING WELL TO LEFT AC. REPOSITIONED TO SIDE. NO RESP. DISTRESS NOTED. NO WHEEZING NOTED. BED ALARM ON. CALL LIGHT IN REACH. ALL NEEDS ATTENDED. WILL CONTINUE TO MONITOR.
[2017-02-12 06:36] LABS: BASOPHILS # (AUTO) 0.1 K/uL (0.0-8.0); BASOPHILS % (AUTO) 0.4 % (0.0-2.0); EOSINOPHILS # (AUTO) 1.4 K/uL (0.0-0.7); HEMATOCRIT 43.4 % (31.2-41.9); HEMOGLOBIN 14.4 g/dL (10.9-14.3); LYMPHOCYTES # (AUTO) 0.9 K/uL (20.0-40.0); LYMPHOCYTES % (AUTO) 4.7 % (20.5-51.5); MEAN CORPUSCULAR HGB CONC 33 g/dL (32.3-35.6); MEAN CORPUSCULAR VOLUME 96.3 fL (75.5-95.3); MONOCYTES # (AUTO) 1.1 K/uL (2.0-10.0); MONOCYTES % (AUTO) 5.5 % (0.0-11.0); NEUTROPHILS # (AUTO) 16.4 K/uL (1.8-8.9); NEUTROPHILS % (AUTO) 82.4 % (38.5-71.5); PLATELET COUNT (AUTO) 283 K/uL (179-408); RED BLOOD CELL COUNT(AUTO) 4.51 MIL/uL (3.63-4.92)
[2017-02-12 06:42] LABS: ALANINE AMINOTRANSFERASE 38 U/L (14-59); ALKALINE PHOSPHATASE 86 U/L (50-136); ASPARTATE AMINOTRANSFERASE 39 U/L (15-37); BILIRUBIN,TOTAL 0.6 mg/dL (0.2-1.0); CARBON DIOXIDE 24 mmol/L (21-32); CHLORIDE 113 mmol/L (98-107); CREATININE 0.9 mg/dL (0.6-1.3); GLUCOSE 129 mg/dL (74-106); MAGNESIUM 1.8 mg/dL (1.8-2.4); PHOSPHOROUS 1.8 mg/dL (2.5-4.9); POTASSIUM 3.5 mmol/L (3.5-5.1); TOTAL PROTEIN, SERUM 5.6 g/dL (6.4-8.2); UREA NITROGEN, BLOOD 23 mg/dL (7-18)
--- NOTE | 2017-02-12 07:30 | NUR ---
Awake, alert,, oriented to name, responds to verbal and painful stimuli. IVF infusing. Repositioned in bed comfortably.
--- NOTE | 2017-02-12 09:00 | NUR ---
Noted not eating breakfast, assisted with meal
[2017-02-12] MEDS: FAMOTIDINE 20 MG TABLET PO SCH (09:31)
[2017-02-12] MEDS: BRIMONIDINE 0.2% OPHT DROP 10 ML BOTTLE EACHEYE SCH ×3 (09:31→18:43)
[2017-02-12] MEDS: CARVEDILOL 3.125 MG TABLET PO SCH ×2 (09:31→18:44)
[2017-02-12] MEDS: LEVETIRACETAM 500 MG TABLET PO SCH ×2 (09:31→21:17)
[2017-02-12] MEDS: CLOPIDOGREL 75 MG TABLET PO SCH (09:32)
[2017-02-12] MEDS: FLECAINIDE ACETATE 100 MG TABLET PO SCH ×2 (09:32→18:44)
[2017-02-12] MEDS: Z GUARD REMEDY PASTE 57 GM TUBE TOP SCH ×2 (09:33→21:18)
[2017-02-12 11:52] VITALS: BP 107/56
--- NOTE | 2017-02-12 12:30 | NUR ---
Repositioned. Assisted with meal
[2017-02-12] MEDS ORDERED: NEUTRA PHOS PACKET PO ONE (15:30)
[2017-02-12 16:30] VITALS: BP 128/81
--- NOTE | 2017-02-12 18:30 | NUR ---
Repositioned comfortably, kept dry
--- NOTE | 2017-02-12 20:00 | NUR ---
RECEIVED PATIENT AWAKE IN BED. A/O X2. PLEASANT WHEN APPROACHED. EASILY FORGETFUL. DENIES PAIN. DENIES SOB. ON O2 2L NC SATING WELL. VSS. IVF INFUSING WELL TO LEFT AC #20 GAUGE. ON AIR MATTRESS FOR PRESSURE RELIEF. REPOSITIONED TO SIDE. F/C INTACT AND PATENT, DRAINING CLEAR, YELLOW URINE. BED ALARM ON. CALL LIGHT IN REACH. ALL NEEDS ATTENDED. WILL CONTINUE TO MONITOR.
[2017-02-12 20:29] VITALS: BP 118/70
[2017-02-12] MEDS: LATANOPROST OPHT DROP 2.5 ML BOTTLE EACHEYE SCH (21:00)
[2017-02-12] MEDS: ENOXAPARIN SODIUM 30 MG/0.3 ML DISP.SYRIN SQ SCH (21:17)
[2017-02-12] MEDS: DONEPEZIL 5 MG TABLET PO SCH (21:18)
[2017-02-13] MEDS: POTASSIUM CHLORIDE 20 MEQ in IV D5W 1000ML 1,000 ML IV PRN (00:08)
[2017-02-13] MEDS: PIPERACILLIN/TAZOBACTAM/D5W 2.25 G in PREMIXED 1 EACH IV SCH ×4 (03:35→23:41)
--- NOTE | 2017-02-13 04:55 | NUR ---
PATIENT ASLEEP IN BED. WHEEZING NOTED. ON O2 2L NC SATING 99%. NO RESP. DISTRESS NOTED. CALLED OUT TO EUGENE GALLEGOS GRANTS MANAGER FOR FURTHER ORDERS. RECEIVED ORDER TO GIVE PATIENT PRN BREATHING TX AND FOLLOW UP IN AM WITH . Addendum: 02/13/17 at 0556 by JASON MCGREGOR LVN LOG CUTTER ALSO NOTIFIED OF PATIENTS LOW URINE OUTP
[2017-02-13 05:08] VITALS: BP 134/87
[2017-02-13] MEDS: ALBUTEROL SULFATE 2.5 MG/3 ML NEBU NEB PRN ×2 (05:52→13:45)
--- NOTE | 2017-02-13 05:53 | NUR ---
RT AT BEDSIDE TO GIVE PATIENT BREATHING TX. ALL NEEDS ATTENDED. WILL CONTINUE TO MONITOR. AM VITALS STABLE. BED ALARM ON. ALL NEEDS ATTENDED. WILL CONTINUE TO MONITOR.
--- NOTE | 2017-02-13 06:27 | NUR ---
PATIENT ASLEEP. BREATHING TX GIVEN PER RN. NO WHEEZING NOTED. DIMINISHED LUNG SOUNDS. WILL CONTINUE TO MONITOR. BED ALARM ON. ALL NEEDS ATTENDED.
[2017-02-13 07:01] LABS: BASOPHILS % (AUTO) 0.5 % (0.0-2.0); EOSINOPHILS # (AUTO) 0.7 K/uL (0.0-0.7); EOSINOPHILS % (AUTO) 6.7 % (0.0-7.0); HEMATOCRIT 40.5 % (31.2-41.9); HEMOGLOBIN 13.7 g/dL (10.9-14.3); LYMPHOCYTES # (AUTO) 0.7 K/uL (20.0-40.0); LYMPHOCYTES % (AUTO) 6.4 % (20.5-51.5); MEAN CORPUSCULAR HGB CONC 34 g/dL (32.3-35.6); MEAN CORPUSCULAR VOLUME 94.3 fL (75.5-95.3); MONOCYTES # (AUTO) 0.9 K/uL (2.0-10.0); MONOCYTES % (AUTO) 8.4 % (0.0-11.0); NEUTROPHILS # (AUTO) 8.4 K/uL (1.8-8.9); PLATELET COUNT (AUTO) 233 K/uL (179-408); RED BLOOD CELL COUNT(AUTO) 4.29 MIL/uL (3.63-4.92); WHITE BLOOD COUNT (AUTO) 10.8 K/uL (3.8-11.8)
[2017-02-13 07:20] LABS: CARBON DIOXIDE 28 mmol/L (21-32); CHLORIDE 109 mmol/L (98-107); CREATININE 0.8 mg/dL (0.6-1.3); GLUCOSE 106 mg/dL (74-106); MAGNESIUM 1.4 mg/dL (1.8-2.4); PHOSPHOROUS 1.9 mg/dL (2.5-4.9); POTASSIUM 3.3 mmol/L (3.5-5.1); UREA NITROGEN, BLOOD 13 mg/dL (7-18)
[2017-02-13] MEDS: FAMOTIDINE 20 MG TABLET PO SCH (08:11)
[2017-02-13] MEDS: FLECAINIDE ACETATE 100 MG TABLET PO SCH ×2 (08:12→16:34)
[2017-02-13] MEDS: CLOPIDOGREL 75 MG TABLET PO SCH (08:12)
[2017-02-13] MEDS: BRIMONIDINE 0.2% OPHT DROP 10 ML BOTTLE EACHEYE SCH ×4 (08:12→23:23)
[2017-02-13] MEDS: LEVETIRACETAM 500 MG TABLET PO SCH ×2 (08:12→21:25)
[2017-02-13] MEDS: CARVEDILOL 3.125 MG TABLET PO SCH ×2 (08:12→17:23)
[2017-02-13] MEDS: Z GUARD REMEDY PASTE 57 GM TUBE TOP SCH ×2 (08:17→21:00)
[2017-02-13] MEDS ORDERED: POTASSIUM PHOSPHATE MM 7.5 MMOL in IV DEXTROSE 5% 100 ML IV SCH (09:45)
[2017-02-13] MEDS ORDERED: ALBU2.5V7 NEB (09:56)
[2017-02-13] MEDS ORDERED: CARV3.122 PO (09:56)
[2017-02-13] MEDS: MAGNESIUM SULFATE/D5W 100 ML IV SCH ×2 (10:40→10:51)
[2017-02-13 11:11] VITALS: BP 103/69
--- NOTE | 2017-02-13 13:16 | NUR ---
Whezzing was noted by speech therapy, vitals signs wnl. Called RT for breathing treatment.
[2017-02-13] MEDS: POTASSIUM PHOSPHATE MM 7.5 MMOL in IV DEXTROSE 5% 100 ML IV SCH ×2 (13:23→15:05)
[2017-02-13 15:32] VITALS: BP 139/78
--- NOTE | 2017-02-13 18:47 | NUR ---
Patient been in bed sleeping. Seemed lethargic at times, V/S wnl, respond when ask questions. No s/s of distress noted. Notified . Nahomi Dempsey about bilateral edema and wheezing. MD verbalized planning for discharge after Iv medications are given. Medications administered as ordered. I/O WNL, clear and yellow. Safety and comfort provided.
[2017-02-13 19:00] VITALS: BP 130/79
[2017-02-13] MEDS: LATANOPROST OPHT DROP 2.5 ML BOTTLE EACHEYE SCH (21:00)
[2017-02-13] MEDS: DONEPEZIL 5 MG TABLET PO SCH (21:25)
[2017-02-13] MEDS: ENOXAPARIN SODIUM 30 MG/0.3 ML DISP.SYRIN SQ SCH (21:27)
--- NOTE | 2017-02-14 | NUR ---
Patient requested stronger pain management medication due to severe head ache. denies any visual peripheral changes, or any n/v, or light sensitivity. Patient teaching on notify nurse if sx/sx of head ache do not improve. Patient verbalized understanding of instructions and repeated back. call light with in reach. Medicated with norco and nectar thick liquids, tolerated p.o. intake.
[2017-02-14 04:00] VITALS: BP 158/98
[2017-02-14] MEDS: PIPERACILLIN/TAZOBACTAM/D5W 2.25 G in PREMIXED 1 EACH IV SCH ×2 (06:50→09:26)
--- NOTE | 2017-02-14 07:00 | NUR ---
PATIENT STABLE ON SHIFT. C/O CONSTANT H.A. NO ACUTE DISTRESS ON SHIFT. PATIENT STABLE WILL CONTINUE TO MONITOR AND ENDORSE C/O OF H.A. NOT RELIEVED BY MEDICATION. NOTED PATIENT FELL ASLEEP AT 0445 IN A.M.
--- NOTE | 2017-02-14 07:30 | NUR ---
Awake, alert. oriented to name, forgetful, able to verbalize needs. O2 at 2L/NC with O2 sat of 97%.
[2017-02-14 07:53] VITALS: BP 153/90
[2017-02-14] MEDS: LEVETIRACETAM 500 MG TABLET PO SCH (09:24)
[2017-02-14] MEDS: CARVEDILOL 3.125 MG TABLET PO SCH (09:24)
[2017-02-14] MEDS: CLOPIDOGREL 75 MG TABLET PO SCH (09:25)
[2017-02-14] MEDS: FLECAINIDE ACETATE 100 MG TABLET PO SCH (09:25)
[2017-02-14] MEDS: FAMOTIDINE 20 MG TABLET PO SCH (09:25)
[2017-02-14] MEDS: Z GUARD REMEDY PASTE 57 GM TUBE TOP SCH (09:26)
[2017-02-14 11:09] VITALS: BP 121/71
[2017-02-14] MEDS: BRIMONIDINE 0.2% OPHT DROP 10 ML BOTTLE EACHEYE SCH (12:57)
[2017-02-14 15:27] VITALS: BP 148/89
--- NOTE | 2017-02-14 16:03 | NUR ---
With discharge order to home, arranged at [facility]. Saline lock removed. No skin breakdown noted. Mendez catheter intact. DC instruction to be given to ambulance crew.
--- NOTE | 2017-02-14 16:42 | NUR ---
Discharged per gurney/ambulance in fair condition, not in distress, afebrile.
== END 2017-02-14 16:30 | disposition home health service (06) | DRG 871 ==
LOC: ER 11:39 → CCU 15:19 → TELE 02-10 09:34 → MED 02-11 16:25
PROVIDERS: ADMIT Internal Medicine; ATTEND Internal Medicine
DX: A41.9 Sepsis, unspecified organism (principal); G93.41 Metabolic encephalopathy; N17.0 Acute kidney failure with tubular necrosis; I21.A1 Myocardial infarction type 2; E43 Unspecified severe protein-calorie malnutrition; E87.5 Hyperkalemia; D68.59 Other primary thrombophilia; E87.0 Hyperosmolality and hypernatremia; N39.0 Urinary tract infection, site not specified; I45.2 Bifascicular block; I50.9 Heart failure, unspecified; I27.20 Pulmonary hypertension, unspecified; E86.0 Dehydration; I48.0 Paroxysmal atrial fibrillation; E78.5 Hyperlipidemia, unspecified; F03.90 Unspecified dementia, unspecified severity, without behavioral disturbance, psychotic disturbance, mood disturbance, and anxiety; G40.909 Epilepsy, unspecified, not intractable, without status epilepticus; I12.9 Hypertensive chronic kidney disease with stage 1 through stage 4 chronic kidney disease, or unspecified chronic kidney disease; I25.10 Atherosclerotic heart disease of native coronary artery without angina pectoris; N18.2 Chronic kidney disease, stage 2 (mild); R65.20 Severe sepsis without septic shock; Z79.02 Long term (current) use of antithrombotics/antiplatelets; Z79.899 Other long term (current) drug therapy; Z86.73 Personal history of transient ischemic attack (TIA), and cerebral infarction without residual deficits; Z85.3 Personal history of malignant neoplasm of breast; R29.6 Repeated falls; Z87.891 Personal history of nicotine dependence; H35.30 Unspecified macular degeneration; I70.0 Atherosclerosis of aorta; K21.9 Gastro-esophageal reflux disease without esophagitis; M19.90 Unspecified osteoarthritis, unspecified site; M54.10 Radiculopathy, site unspecified; Z68.26 Body mass index [BMI] 26.0-26.9, adult; Z74.09 Other reduced mobility; I11.0 Hypertensive heart disease with heart failure
CPT/HCPCS: 36415; 70030-TC; 70450; 71010; 83605; 83735; 84100; 84156; 84300; 85025; 85730; 87040; 87086; 92526; 92610; 93005; 93307; 94640; 94664; A4663; J0692; J1580; J1650; J2543; J3370; J3475; J3480; J3490; J7030; J7040; J7060; J7070